=== PATIENT | male | born 1970 | race Caucasian/White ===

== ENCOUNTER 2018-06-10 12:24 | Emergency (ER) | payer SELFPAY | END 2018-06-10 12:40 | LOC: ERS 12:24 | DX: F19.10 Other psychoactive substance abuse, uncomplicated (principal) | CPT/HCPCS: 99283 ==

== ENCOUNTER 2019-07-28 06:38 | Outpatient (CLI) | payer MEDICARE, OTHER ==
[2019-07-28 16:53] LABS: #Basophils 0.1 thou/uL (0.0-0.2); #Eosinphils 0.1 thou/uL (0.0-0.7); #Lymphocytes 1.4 thou/uL (1.20-3.40); #Monocytes 0.3 thou/uL (0.11-0.59); #Neutrophils 8.1 thou/uL (1.40-6.50); %Basophils 0.9 % (0.0-1.0); %Eosinophils 0.6 % (0.0-10.0); %Lymphocytes 13.6 % (21.0-51.0); %Monocytes 3.3 % (0.0-10.0); %Neutrophils 81.6 % (42.0-75.0); Hemoglobin 16.5 g/dL (14.0-18.0); Mean Corpuscular Hemoglobin 35.3 pg (27.0-31.0); Platelet Count 171 thou/uL (130-400); RBC Distribution Width 11.9 % (11.5-14.5); Red Blood Cell (RBC) Count 4.68 mill/uL (4.70-6.10)
[2019-07-28 17:11] LABS: Anion Gap 13 mmol/L (10-20); BUN (Urea Nitrogen) 8 mg/dL (8.9-20.6); Calc. Creatinine Clearance 0 mL/min (70-130); Carbon Dioxide 26 mmol/L (22-29); Chloride 103 mmol/L (98-107); Estimated GFR-MDRD Greater than 90; Glucose 107 mg/dL (70-105); Sodium 138 mmol/L (136-145)
[2019-07-29 10:42] LABS: SARS-CoV-2 MS2 Positive; SARS-CoV-2 N Gene Negative; SARS-CoV-2 S Gene Negative; SARS-CoV-2 orf1ab Negative
== END 2019-07-28 06:39 | disposition home or self-care (01) ==
LOC: LABBT 06:38
PROVIDERS: ATTEND Surgery
DX: Z01.812 Encounter for preprocedural laboratory examination (principal); Z11.59 Encounter for screening for other viral diseases; K40.90 Unilateral inguinal hernia, without obstruction or gangrene, not specified as recurrent
CPT/HCPCS: 80048; 85025; U0003; 87635

== ENCOUNTER 2019-08-02 05:45 | Day surgery (SDC) | payer MEDICARE ==
[2019-07-28 15:43] VITALS: BMI 21.5
[2019-08-02] MEDS ORDERED: Bupivacaine 0.25% HCL 30 ML VIAL ONE (10:10)
[2019-08-02] MEDS ORDERED: Lidocaine 1% w/Epinephrine 1:100K 20 ML VIAL ONE (10:10)
[2019-08-02] MEDS ORDERED: Bupivacaine PF 0.5% 30 ML VIAL ONE (10:10)
[2019-08-02] MEDS ORDERED: Midazolam HCl 2 mg/2 ml Vial ONE (10:30)
[2019-08-02] MEDS ORDERED: Fentanyl 250 MCG/5 ML VIAL ONE (10:32)
[2019-08-02] MEDS ORDERED: PHENYLEPHRINE-NS 100 MCG/ML 10 ML SYRINGE ONE (11:20)
[2019-08-02] MEDS ORDERED: Ondansetron PF 4 MG/2 ML Vial ONE (11:20)
[2019-08-02] MEDS ORDERED: Glycopyrrolate 0.2 MG/ML 5 ML SYRINGE ONE (11:20)
[2019-08-02] MEDS ORDERED: Lidocaine 1% PF 5 ML VIAL ONE (11:20)
[2019-08-02] MEDS ORDERED: Dexamethasone 20 MG/5 ML VIAL ONE (11:20)
[2019-08-02] MEDS ORDERED: PROPOFOL 200 MG/20 ML VIAL ONE (11:20)
[2019-08-02] MEDS ORDERED: EPHEDRINE 25 MG/5 ML SYRINGE ONE (11:20)
[2019-08-02] MEDS ORDERED: Rocuronium Bromide 10 MG/ML (10ML VIAL) ONE (11:20)
--- NOTE | 2019-08-02 19:28 | OP ---
DATE OF PROCEDURE: 08/02/2019 PREOPERATIVE DIAGNOSIS: Left inguinal hernia, skin tag back. POSTOPERATIVE DIAGNOSIS: Left inguinal hernia, skin tag back. PROCEDURES PERFORMED: 1. Left inguinal hernia repair with mesh, PHS extended. 2. Extended excision skin tag back 2 cm greatest diameter. ANESTHESIA: General. ESTIMATED BLOOD LOSS: Minimal. COMPLICATIONS: None. SPECIMEN: Skin tag. DESCRIPTION OF PROCEDURE: The patient was taken to the operating room and laid supine on the operating room table. After general anesthetic was obtained, the bilateral groins and abdomen were shaved, prepped, and draped in a sterile fashion. An oblique incision was made above the pubic tubercle in the left lower quadrant. Cautery was dissected down through Shayan's to expose external oblique. External oblique fibers were opened along the course of the external ring. Contents of the inguinal canal were dissected from backside of the external oblique. Cord structures were mobilized on the pubic tubercle using a Alyssa drain. Dissection superiorly and medially on the cord showed there to be the indirect hernia sac. This was dissected high up on to the cord structures back into the preperitoneal space. Preperitoneal space was bluntly dissected through the internal ring. The PHS extended mesh was brought onto the sterile field. The underlay was placed in preperitoneal space. Its fibers laid out flat against the posterior abdominal wall. The overlay was lying in the floor of the inguinal canal. The overlay sewn distally to the pubic tubercle medially to the transverse arch, laterally to the shelving edge of the ligament. The two ends cut, mesh were incorporated at the shelving edge of inguinal ligament to reform the internal ring. The extra mesh was tacked back under the external oblique proximal. This wound was irrigated. The local anesthetic was applied, tunneled cath for postoperative pain, threaded from above the incision, left on top of the mesh. External oblique was closed using 3-0 Vicryl. Shayan's closed using 3-0 Vicryl. Skin was closed running 4-0 Monocryl and Dermabond. The patient was sent to Recovery in stable condition. All sponge counts, needle counts, and lap counts were correct. Next, the patient was placed in a right lateral decubitus position and his back area around the skin tag was prepped, draped in a sterile fashion. Local anesthetic infiltrated into the skin tag, the skin tag was removed and wound closed using 3-0 Vicryl, 4-0 Monocryl, and Dermabond. The patient was sent to Recovery in stable condition. All instrument counts, needle counts, and lap counts were correct. Job ID: [id number]
== END 2019-08-02 13:20 | disposition home or self-care (01) ==
LOC: SDC 05:45
PROVIDERS: ATTEND Surgery
PROC: 0HB6XZZ Excision of Back Skin, External Approach (ICD-10-PCS; principal; 2019-08-02)
PROC: 0YU60JZ Supplement Left Inguinal Region with Synthetic Substitute, Open Approach (ICD-10-PCS; 2019-08-02)
DX: K40.90 Unilateral inguinal hernia, without obstruction or gangrene, not specified as recurrent (principal); L91.8 Other hypertrophic disorders of the skin; Z98.890 Other specified postprocedural states
CPT/HCPCS: 11200; 49505; 88305; A4306; C1781; J0690; J1100; J2001; J2250; J2405; J2704; J3010; S0020